=== PATIENT | female | born 1960 | race Caucasian/White ===

== ENCOUNTER 2017-04-25 18:24 | Inpatient (IN) | payer BC ==
[~2017-04-25] VITALS: Ht 162.6 cm; Wt 86.2 kg
--- NOTE | ~2017-04-25 | DS ---
Discharge Summary [place] [id number] [place]. [address] NAME: ANA DUPONT : 56 STATUS : DIS IN PAT#: [id number] AGE: 57 ADM/REG DATE : 04/25/17 MR#: [id number] REPORT SERV DATE: 04/29/17 DICTATED BY: GRISEL JADE DATE: 04/28/17 REPORT STATUS : Draft TRANSCRIBED BY: MODL DATE: 04/28/17 ADMISSION DATE: 04/25/2017 DISCHARGE DATE: 04/28/2017 PRINCIPAL DIAGNOSIS: Ischemic colitis expected to hormone replacement therapy and lisinopril. SECONDARY DIAGNOSES: Type 2 diabetes and hypertension. HISTORY OF PRESENT ILLNESS: Please see Dr. Santos' dictation 04/25/2017. HOSPITAL COURSE: The patient was admitted with abdominal pain about a week following a colonoscopy which had been normal. The patient also had diarrhea. CT showed area of bowel wall thickening of the splenic flexure. The patient did not have fever with this, leukocytosis, did not have significant exam findings, was most consistent instead with ischemic colitis as the patient had been on hormone replacement therapy and lisinopril. These were discontinued. Cozaar was put in its place. The patient actually did quite well. The diet was advanced, seen by GI, no further endoscopic evaluation is deemed necessary and she had met the maximum benefit of hospitalization by 04/28/2017. She released in satisfactory condition with GI soft diet. Activity as tolerated. Following up with Isabella Rebolledo in one to two weeks and Dr. Aparicio as previously scheduled on Levaquin and Flagyl for three more days, Protonix, Florastor, Cozaar, Levemir, Prozac, Synthroid. RSM/ABAD Grisel Jade M.D. / [id number] CC: Frandy Sam M.D.
--- NOTE | ~2017-04-25 | HP ---
History And Physical [place] [id number] [facility] [place]. [address] NAME: ANA DUPONT : 56 STATUS : ADM IN [facility]#: [id number] AGE: 57 ADM/REG DATE : 04/25/17 MR#: [id number] REPORT SERV DATE: 04/26/17 DICTATED BY: KADI SLAUGHTER DATE: 04/25/17 REPORT STATUS : Draft TRANSCRIBED BY: MODAbhi DATE: 04/25/17 DATE OF ADMISSION: 04/25/2017 CHIEF COMPLAINT: Nausea, vomiting, and diarrhea. HISTORY OF PRESENT ILLNESS: A 57-year-old white female was actually in the emergency room to have her mother evaluated when she developed profuse nausea, vomiting, and diarrhea. The patient states today the patient was in the bathroom mom when she became diaphoretic after having nausea, vomiting, diarrhea thus was brought to be evaluated. Her mom was sent home; however, we were requested to admit the patient. The patient has had some nausea, vomiting, diarrhea, abdominal issues for about two months. She had a recent colon and EGD on 04/18/[address] Kelley, who is in Dr. Calvin's group. Recently she was started on Amitiza and has had no problems really since this was started. CT scan in emergency room revealed evidence of colitis. PAST MEDICAL HISTORY: 1. Type 2 diabetes mellitus. 2. Hypertension. 3. Depression. 4. Hypothyroidism. 5. She has obstructive sleep apnea and uses CPAP. PAST SURGICAL HISTORY: 1. The patient had lung surgery for pleural effusions. 2. Right knee surgery. 3. Right rotator cuff surgery. 4. Cholecystectomy. 5. Hysterectomy. SOCIAL HISTORY: She does not smoke. Does not drink. 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 She has a significant other. She is a full code. FAMILY HISTORY: Mom has hypertension, diabetes, has CHF and has CAD, and had stents. Dad has diabetes, depression, and prostate issues. ALLERGIES: THE PATIENT HAS SIDE EFFECTS TO CODEINE "MAKES HER FEEL FUNNY". HOME MEDICATIONS: 1. Albuterol MDI. 2. Cholecalciferol 2000 units daily. 3. Estradiol one patch topically Monday and Monday. 4. Prozac 40 mg daily. 5. Levsin 0.25 mg every 4 hours as needed. 6. Levemir 20 units b.i.d. 7. Synthroid 50 mcg every morning. History And Physical [address] [place]. [address] NAME: ANA DUPONT : 56 STATUS : ADM IN [facility]#: [id number] AGE: 57 ADM/REG DATE : 04/25/17 MR#: [id number] REPORT SERV DATE: 04/26/17 DICTATED BY: KADI SLAUGHTER DATE: 04/25/17 REPORT STATUS : Draft TRANSCRIBED BY: ABAD DATE: 04/25/17 8. Victoza 1.2 mg subcu every morning. 9. Lisinopril 10 mg q.h.s. 10.Amitiza 8 mcg b.i.d. 11.Dulera two puffs at bedtime as needed. 12.Multivitamins daily. 13.Naltrexone/bupropion 8/90 mg two tabs b.i.d. 14.Aleve 220 mg daily. 15.Prilosec 20 mg daily. 16.Crestor 20 mg q.h.s. 17.Halcion 0.25 mg at bedtime. REVIEW OF SYSTEMS: CONSTITUTIONAL: No fever. She has had some sweats. No rigors. EYES: No blurred, double vision, vision loss, or glaucoma. HENT: No headache, hearing loss, or tinnitus. CARDIOVASCULAR: No chest pain, palpitations, or syncope. RESPIRATORY: No cough, wheezing, or pleuritic pain. GASTROINTESTINAL: She has had nausea and vomiting. No hematemesis. She has had some abdominal pain. She has had diarrhea. She does have history of constipation. No melena or hematochezia. MUSCULOSKELETAL: She does have arthralgia and arthritis. INTEGUMENT: No rash or suspicious skin lesions. NEUROLOGIC: No memory loss, gait disturbance, weakness. HEMATOLOGIC: No anemia, iron deficiency, or B12 deficiency. PSYCHIATRIC: She has had a history of depression. No bipolar disorder or anxiety. : No dysuria, hematuria, or nephrolithiasis. ENDOCRINE: She is diabetic. Does have history of thyroid disease and increased cholesterol. PHYSICAL EXAMINATION: VITAL SIGNS: Blood pressure is 100/53, temp 97.7, pulse 81, respirations 18, and O2 saturation 97% on room air. CONSTITUTIONAL: Alert and appropriate. PSYCHIATRIC: Oriented x3. Memory intact. Affect appropriate. HENT: Atraumatic and normocephalic. Oral palate without lesion. EYES: Pupils reactive, anicteric. NECK: No adenopathy. Supple. No thyromegaly or masses. RESPIRATORY: Clear to percussion and auscultation. CARDIOVASCULAR: Regular rate and rhythm. No murmurs. ABDOMEN: Moderate diffuse tenderness worse in the mid-epigastric region. SKIN: No rash or suspicious lesions. NEUROLOGIC: The patient moves all four extremities. Cranial nerves 2 through 12 intact. LYMPHATIC: No adenopathy in the neck, axillary or femoral region. MUSCULOSKELETAL: Range of motion intact in upper and lower extremity. DATA: CT scan shows nonspecific colitis, no evidence of bowel obstruction. Lactate 3.5. History And Physical [address] [address] NAME: ANA DUPONT : 56 STATUS : ADM IN [facility]#: [id number] AGE: 57 ADM/REG DATE : 04/25/17 MR#: [id number] REPORT SERV DATE: 04/26/17 DICTATED BY: KADI SLAUGHTER DATE: 04/25/17 REPORT STATUS : Draft TRANSCRIBED BY: ABAD DATE: 04/25/17 EKG: Normal sinus rhythm, normal EKG. White count 15.3, hemoglobin 16.9, and platelet 313. Sodium 138, potassium 3.4, BUN 13, creatinine 0.98, and glucose 170. IMPRESSION/PLAN: 1. Refractory nausea, vomiting, and diarrhea. This likely is the reason for elevation of lactate, we will give IV fluids. 2. Colitis. We will place the patient on IV Levaquin and IV Flagyl. Consult GI as the patient has had recent EGD colonoscopy. 3. Type 2 diabetes mellitus. We will lower insulin as the patient will be on clear liquid diet. 4. Obstructive sleep apnea. The patient to bring home CPAP. 5. Hypertension. Currently blood pressure on low side. We will hold antihypertensive. NGM/MODL Kadi Slaughter MD / [id number] CC: Frandy Sam M.D.
--- NOTE | ~2017-04-25 | CN ---
Consultation Report [facility] [address] [place]. [address] NAME: ANA DUPONT : 56 STATUS : ADM IN PAT#: [id number] AGE: 57 ADM/REG DATE : 04/25/17 MR#: [id number] REPORT SERV DATE: 04/26/17 DICTATED BY: DAVIDE BRITO DATE: 04/26/17 REPORT STATUS : Draft TRANSCRIBED BY: MODL DATE: 04/26/17 GI CONSULTATION DATE OF CONSULTATION: 04/26/2017 REASON FOR CONSULTATION: Evaluation and management of colitis and abdominal pain. HISTORY OF PRESENT ILLNESS: Ms. Dupont is a very pleasant 57-year-old female patient, who is known to Dr. Kelley in the outpatient setting, who presented to [facility] with a chief complaint of abdominal pain. The patient states that she was actually in the emergency room last evening with her mother secondary to diarrhea and dehydration. She states that her mother was getting ready to be discharged when she developed extreme epigastric abdominal pain and nausea. She had to excuse herself and go to the bathroom. She had emesis. She states that she broke out into a sweat that drenched her body. She felt clammy. She states that she felt dizzy. She came out and let the RN who was taking care of her mother know her symptoms. They treated her immediately. She states she was hypotensive with a systolic around 90. She states that after several minutes, she had profuse uncontrollable diarrhea. She states that it went everywhere. Initially, she did not have any blood in her diarrhea, but states that after the second episode of large volume diarrhea, she developed bright red blood per rectum. She states that since that point in time, she has done nothing but passed bright red blood per rectum. She states that she has had nine episodes of passing bright red blood per rectum. She complains of abdominal soreness. The acute abdominal pain that she was experiencing has abated. She in general feels "ichy." She still has abdominal bloat sensation, nausea, but no emesis. Does not want to eat at this point in time. Mesenteric ultrasound has been ordered by the hospitalist service. CT scan on admission with contrast showed mild diffuse thickening of the transverse and descending colon with liquid fecal material, questioning an underlying mild colitis-type pattern. She states to me that the diarrhea her mother was experiencing is normal for her, but it had increased recently and the patient's mother was showing signs of dehydration. No other family members have been sick with any viral type GI illness per her report. It should be noted that the patient has recently undergone an EGD and a colonoscopy with Dr. Kelley on 04/18/2017. EGD was done secondary to epigastric pain. She had findings of a nonobstructing Schatzki ring, hiatal hernia, normal stomach, and biopsies were taken showing no H pylori and mild chronic gastritis. She had a colonoscopy which showed a poor prep, internal non-thrombosed hemorrhoids, hyperplastic polyp that was removed in the transverse colon, and random biopsies throughout the colon were within normal limits. I have discussed with the patient we will treat her medically at this point in time. Her hemoglobin is stable. Even though she is still passing some bright red blood per rectum, we will not pursue endoscopy at this point in time. Question if this could be all secondary to ischemic colitis. PAST MEDICAL HISTORY: Positive for type 2 diabetes, obesity, hypertension, depression, hypothyroidism, and obstructive sleep apnea with CPAP usage. Consultation Report [place] [id number] [facility] [place]. [address] NAME: ANA DUPONT : 56 STATUS : ADM IN [facility]#: [id number] AGE: 57 ADM/REG DATE : 04/25/17 MR#: [id number] REPORT SERV DATE: 04/26/17 DICTATED BY: DAVIDE BRITO DATE: 04/26/17 REPORT STATUS : Draft TRANSCRIBED BY: ABAD DATE: 04/26/17 SURGERIES: Include pleural effusion with resultant lung surgery, right knee surgery, right rotator cuff repair, cholecystectomy, and hysterectomy. SOCIAL HISTORY: She lives independently. She does not smoke, drink, or use illicit drugs. 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 FAMILY HISTORY: Noncontributory from a GI standpoint. ALLERGIES: CODEINE. HOME MEDICATIONS: ProAir HFA, vitamin D, estradiol, Prozac, Levsin, Levemir, Synthroid, Victoza, Proventil, Amitiza, Dulera, multivitamin, Contrave, Aleve, Prilosec, Crestor, and Halcion. REVIEW OF SYSTEMS: A 10-point review of systems was obtained with pertinent positives being addressed in the history of present illness. PHYSICAL EXAMINATION: VITAL SIGNS: Temperature is 97.4, pulse of 67, respirations of 18, and blood pressure 142/63. NEUROLOGIC: Reveals an alert female, sitting up in bed with no focal deficits. GENERAL: Cooperative, in no apparent distress. She is awake, alert, and oriented x3. She appears uncomfortable secondary to epigastric pain and mild nausea. HEAD, EARS, EYES, NOSE, AND THROAT: Anicteric. Pupils are equal, round, and reactive to light and accommodation. Normocephalic and atraumatic. NECK: Supple with no JVD or palpable nodes. LUNGS: Clear anteriorly with normal respiratory effort exhibited. Equal expansion. CARDIOVASCULAR SYSTEM: Regular rate and rhythm. S1 and S2. No murmurs, rubs, gallops, S3, or S4 appreciated. ABDOMEN: Soft and obese. Tender to palpation, mild diffusely, more so in the left upper quadrant region. No rebound or guarding elicited on exam. Hypoactive bowel sounds. EXTREMITIES: No edema. Normal distal pulses. SKIN: Warm, dry, and intact. PERTINENT LABORATORY DATA: Sodium is 136, potassium 3.8, BUN is 15, and creatinine 0.96. White count 15.1, hemoglobin 14.2, hematocrit 41.8, and platelet count 245. Lactate 1.3. ALT 60, AST 47, alkaline phosphatase 80, total bilirubin 0.7. Stool studies thus far Clostridium difficile negative, Giardia and Cryptosporidium negative, white blood cells 0 to 5 per high-powered field. Cultures and sensitivities are pending. ASSESSMENT: 1. Nausea, vomiting, and diarrhea, acute onset. 2. Colitis by CT scan. This is likely ischemic in nature given her description of symptoms. Consultation Report [address] [place]. [address] NAME: ANA DUPONT : 56 STATUS : ADM IN [facility]#: [id number] AGE: 57 ADM/REG DATE : 04/25/17 MR#: [id number] REPORT SERV DATE: 04/26/17 DICTATED BY: DAVIDE BRITO DATE: 04/26/17 REPORT STATUS : Draft TRANSCRIBED BY: MODL DATE: 04/26/17 3. Leukocytosis secondary to #2. 4. Abdominal pain secondary to #2. 5. Gas bloat. Question if she could have a component of gastroparesis. Would recommend an outpatient gastric emptying study. 6. Type 2 diabetes. 7. Hematochezia. PLAN: 1. Continue antibiotics. 2. Continue IV fluids. 3. Follow up mesenteric ultrasound and stool cultures. 4. Hold Lovenox secondary to hematochezia. 5. We will add TEDs and SCDs. 6. Scheduled Levsin, anti-nausea medication, and pain medication. We will follow. LEONEL/ABAD Davide TITA Rodriguez / [id number] CC: Jovanni Ruiz M.D. Isabella Rebolledo M.D.
[~2017-04-25 18:24] MED LIST: ADVIL PO; ALEVE220 MG PO; AMB10 PO; AUG875 PO; CENTRUM TAB1 TAB PO; CRESTOR20 MG PO; DULERA 100 MCG/13 GM INH; HALCION0.25 MG PO; LEVEMIR SC; MUCINEX DM1 TAB PO; PERCOCET1 TA4 PO; PRILO PO; PRIN10 PO; PROAIR HFA INH; PROZAC40 MG PO; REFRESH TEAR0.5 % OP; SYN125 PO; VITAMIN D31000 UNIT PO
[2017-04-25 19:15] LABS: ALKALINE PHOSPHATASE 102 U/L (45-117); CHLORIDE, SERUM 104 MMOL/L (96-112); CREATININE 0.98 MG/DL (0.55-1.02); GFR AFRICAN AMERICAN 73 ML/MIN (>=60); GFR NON AFRICAN AMERICAN 63 ML/MIN (>=60); GLUCOSE, SERUM 170 MG/DL (60-99); LACTATE 3.5 MMOL/L (0.3-2.4); POTASSIUM, SERUM 3.4 MMOL/L (3.5-5.3); SGOT(AST) 60 U/L (5-40); SGPT(ALT) 71 U/L (5-65); SODIUM, SERUM 138 MMOL/L (135-148); TOTAL BILIRUBIN 0.7 MG/DL (0-1.2)
[2017-04-25 19:16] LABS: BASOPHILS 0.2 %; BASOPHILS ABSOLUTE 0.03 10/3/uL (0.0-0.16); EOSINOPHILS 2.7 %; EOSINOPHILS ABSOLUTE 0.41 10/3/uL (0.0-0.53); IMMATURE GRANULOCYTES 0.4 %; IMMATURE GRANULOCYTES ABSOLUTE 0.06 10/3/uL (0.0-0.11); LYMPHOCYTES 37.5 %; LYMPHOCYTES ABSOLUTE 5.75 10/3/uL (0.67-4.30); MEAN CORPUSCULAR HEMOGLOB 31.1 pg (26.0-34.0); MEAN CORPUSCULAR VOLUME 89.9 fL (80-100); MEAN PLATELET VOLUME 11.5 fL (9.2-13.0); MONOCYTES 4.2 %; MONOCYTES ABSOLUTE 0.64 10/3/uL (0.21-1.20); NEUTROPHILS ABSOLUTE 8.43 10/3/uL (2.02-8.40); PLATELET COUNT 313 10/3/uL (150-400); WHITE BLOOD CELLS 15.3 10/3/uL (4.5-10.5)
[2017-04-25 19:17] LABS: ALBUMIN 4.6 G/DL (3.5-5.0); BUN (BLOOD UREA NITROGEN) 13 MG/DL (6-23); CALCIUM, SERUM 10.3 MG/DL (8.5-10.4); CO2 (CARBON DIOXIDE) 21 MMOL/L (24-34); GLOBULIN 4.5 G/DL (2.5-4.1); TOTAL PROTEIN 9.1 G/DL (6.0-8.5)
[2017-04-25 19:18] LABS: HEMATOCRIT 48.9 % (36.0-48.0); HEMOGLOBIN 16.9 g/dL (12.0-16.0); MANUAL DIFF NO %; MEAN CORPUS HGB CONC 34.6 g/dL (32.0-36.0); RED CELL COUNT 5.44 10/6/uL (4.0-5.6)
[2017-04-25 19:49] LABS: EOSINOPHILS 2 %; EOSINOPHILS ABSOLUTE (CALC) 0.31 10/3/uL (0.0-0.53); ER DIFF TAT 0 Hrs 39 Mins; LYMPHOCYTES 38 %; LYMPHOCYTES ABSOLUTE (CALC) 5.81 10/3/uL (0.67-4.30); MONOCYTES 4 %; MONOCYTES ABSOLUTE (CALC) 0.61 10/3/uL (0.21-1.20); NEUTROPHILS ABSOLUTE (CALC) 8.57 10/3/uL (2.02-8.40); PLATELET ESTIMATE ADQ (ADEQUATE); RBC MORPHOLOGY NORM (NORMAL); SEGMENTED NEUTROPHIL (0) 56 %; TOTAL NUCLEATED CELLS 100
[2017-04-25] MEDS ORDERED: CONTRAVE ER 8-1 EACH PO (21:42)
[2017-04-25] MEDS ORDERED: SYN.05 PO (21:43)
[2017-04-25] MEDS ORDERED: HAL PO (21:43)
[2017-04-25] MEDS ORDERED: PRIN10 PO (21:44)
[2017-04-25] MEDS ORDERED: AMITIZA8 MCG PO (21:44)
[2017-04-25] MEDS ORDERED: PRILO PO (21:45)
[2017-04-25] MEDS ORDERED: PROAIR HFA INH (21:45)
[2017-04-25] MEDS ORDERED: CRESTOR20 MG PO (21:45)
[2017-04-25] MEDS ORDERED: LEVEMFLXPN SC (21:45)
[2017-04-25] MEDS ORDERED: DULERA 100 MCG/13 GM INH (21:46)
[2017-04-25] MEDS ORDERED: ALEVE220 MG PO (21:47)
[2017-04-25] MEDS ORDERED: MINIVELLE1 EACH TOP (21:47)
[2017-04-25] MEDS ORDERED: VICTOZA18 MG/3 ML SC (21:48)
[2017-04-25] MEDS ORDERED: PROZAC40 MG PO (21:49)
[2017-04-25] MEDS ORDERED: LEVSINTAB PO/SL (21:49)
[2017-04-25] MEDS ORDERED: VITAMIN D2000 UNIT PO (21:50)
[2017-04-25] MEDS ORDERED: MULTIVIT/MIN PO (21:50)
[2017-04-26 05:17] LABS: BASOPHILS 0.1 %; BASOPHILS ABSOLUTE 0.01 10/3/uL (0.0-0.16); EOSINOPHILS 0.1 %; EOSINOPHILS ABSOLUTE 0.02 10/3/uL (0.0-0.53); HEMOGLOBIN 14.2 g/dL (12.0-16.0); IMMATURE GRANULOCYTES 0.3 %; IMMATURE GRANULOCYTES ABSOLUTE 0.04 10/3/uL (0.0-0.11); LYMPHOCYTES 11.5 %; LYMPHOCYTES ABSOLUTE 1.74 10/3/uL (0.67-4.30); MEAN CORPUSCULAR HEMOGLOB 30.3 pg (26.0-34.0); MEAN CORPUSCULAR VOLUME 89.1 fL (80-100); MEAN PLATELET VOLUME 11.5 fL (9.2-13.0); MONOCYTES 7.6 %; MONOCYTES ABSOLUTE 1.14 10/3/uL (0.21-1.20); NEUTROPHILS 80.4 %; NEUTROPHILS ABSOLUTE 12.13 10/3/uL (2.02-8.40); PLATELET COUNT 245 10/3/uL (150-400); RBC DISTRIBUTION WIDTH 12.9 % (12.0-16.0); RED CELL COUNT 4.69 10/6/uL (4.0-5.6); WHITE BLOOD CELLS 15.1 10/3/uL (4.5-10.5)
[2017-04-26 05:19] LABS: HEMATOCRIT 41.8 % (36.0-48.0); MANUAL DIFF NO %
[2017-04-26 05:28] LABS: BUN (BLOOD UREA NITROGEN) 15 MG/DL (6-23); CHLORIDE, SERUM 101 MMOL/L (96-112); CO2 (CARBON DIOXIDE) 25 MMOL/L (24-34); CREATININE 0.96 MG/DL (0.55-1.02); GFR AFRICAN AMERICAN 75 ML/MIN (>=60); GFR NON AFRICAN AMERICAN 65 ML/MIN (>=60); GLUCOSE, SERUM 180 MG/DL (60-99); PHOSPHORUS, SERUM 4.3 MG/DL (2.5-4.5); POTASSIUM, SERUM 3.8 MMOL/L (3.5-5.3); SGOT(AST) 47 U/L (5-40); SGPT(ALT) 60 U/L (5-65); SODIUM, SERUM 136 MMOL/L (135-148); TOTAL BILIRUBIN 0.5 MG/DL (0-1.2)
[2017-04-26 05:29] LABS: A/G RATIO 0.9 (0.7-1.9); ALBUMIN 3.4 G/DL (3.5-5.0); ALKALINE PHOSPHATASE 80 U/L (45-117); CALCIUM, SERUM 8.8 MG/DL (8.5-10.4); GLOBULIN 3.6 G/DL (2.5-4.1)
[2017-04-27 06:47] LABS: BASOPHILS 0.1 %; BASOPHILS ABSOLUTE 0.01 10/3/uL (0.0-0.16); EOSINOPHILS 2.1 %; EOSINOPHILS ABSOLUTE 0.16 10/3/uL (0.0-0.53); HEMATOCRIT 40.4 % (36.0-48.0); HEMOGLOBIN 13.2 g/dL (12.0-16.0); IMMATURE GRANULOCYTES 0.4 %; IMMATURE GRANULOCYTES ABSOLUTE 0.03 10/3/uL (0.0-0.11); LYMPHOCYTES 25.3 %; LYMPHOCYTES ABSOLUTE 1.97 10/3/uL (0.67-4.30); MEAN CORPUS HGB CONC 32.7 g/dL (32.0-36.0); MEAN PLATELET VOLUME 10.7 fL (9.2-13.0); MONOCYTES 8.2 %; MONOCYTES ABSOLUTE 0.64 10/3/uL (0.21-1.20); NEUTROPHILS 63.9 %; NEUTROPHILS ABSOLUTE 4.98 10/3/uL (2.02-8.40); PLATELET COUNT 198 10/3/uL (150-400); RBC DISTRIBUTION WIDTH 13.2 % (12.0-16.0)
[2017-04-27 06:49] LABS: MANUAL DIFF NO %; MEAN CORPUSCULAR VOLUME 91.8 fL (80-100); WHITE BLOOD CELLS 7.8 10/3/uL (4.5-10.5)
[2017-04-27 07:10] LABS: BUN (BLOOD UREA NITROGEN) 5 MG/DL (6-23); CALCIUM, SERUM 8.9 MG/DL (8.5-10.4); CHLORIDE, SERUM 106 MMOL/L (96-112); CO2 (CARBON DIOXIDE) 27 MMOL/L (24-34); CREATININE 0.63 MG/DL (0.55-1.02); GFR AFRICAN AMERICAN 114 ML/MIN (>=60); GFR NON AFRICAN AMERICAN 98 ML/MIN (>=60); GLUCOSE, SERUM 171 MG/DL (60-99); POTASSIUM, SERUM 3.8 MMOL/L (3.5-5.3); SODIUM, SERUM 139 MMOL/L (135-148)
[2017-04-28 06:50] LABS: BUN (BLOOD UREA NITROGEN) 5 MG/DL (6-23); CALCIUM, SERUM 9.3 MG/DL (8.5-10.4); CHLORIDE, SERUM 105 MMOL/L (96-112); CO2 (CARBON DIOXIDE) 31 MMOL/L (24-34); CREATININE 0.72 MG/DL (0.55-1.02); GFR AFRICAN AMERICAN 106 ML/MIN (>=60); GFR NON AFRICAN AMERICAN 92 ML/MIN (>=60); GLUCOSE, SERUM 141 MG/DL (60-99); POTASSIUM, SERUM 3.5 MMOL/L (3.5-5.3); SODIUM, SERUM 143 MMOL/L (135-148)
[2017-04-28 06:56] LABS: BASOPHILS 0.3 %; BASOPHILS ABSOLUTE 0.02 10/3/uL (0.0-0.16); EOSINOPHILS ABSOLUTE 0.28 10/3/uL (0.0-0.53); HEMOGLOBIN 13.9 g/dL (12.0-16.0); IMMATURE GRANULOCYTES 0.3 %; IMMATURE GRANULOCYTES ABSOLUTE 0.02 10/3/uL (0.0-0.11); LYMPHOCYTES 37.4 %; MEAN CORPUS HGB CONC 33.1 g/dL (32.0-36.0); MEAN CORPUSCULAR HEMOGLOB 30.3 pg (26.0-34.0); MEAN CORPUSCULAR VOLUME 91.5 fL (80-100); MEAN PLATELET VOLUME 11.2 fL (9.2-13.0); MONOCYTES 6.3 %; MONOCYTES ABSOLUTE 0.44 10/3/uL (0.21-1.20); NEUTROPHILS 51.7 %; NEUTROPHILS ABSOLUTE 3.59 10/3/uL (2.02-8.40); PLATELET COUNT 225 10/3/uL (150-400); RBC DISTRIBUTION WIDTH 13.1 % (12.0-16.0); RED CELL COUNT 4.59 10/6/uL (4.0-5.6)
[2017-04-28 06:58] LABS: MANUAL DIFF NO %
[2017-04-28] MEDS ORDERED: LEVAQUIN750 MG PO (10:09)
[2017-04-28] MEDS ORDERED: FLORASTOR250 MG PO (10:09)
[2017-04-28] MEDS ORDERED: FLAG500TAB PO (10:10)
[2017-04-28] MEDS ORDERED: COZ50 PO (10:11)
== END 2017-04-28 14:25 | disposition home or self-care (01) | DRG 395 ==
LOC: ER 18:24 → 7NO 22:44
PROVIDERS: Hospitalist; Internal Medicine; Nurse Practitioner Family; Student in an Organized Health Care Education/Training Program
DX: K55.9 Vascular disorder of intestine, unspecified (principal); Z99.81 Dependence on supplemental oxygen; E11.9 Type 2 diabetes mellitus without complications; G47.33 Obstructive sleep apnea (adult) (pediatric); E03.9 Hypothyroidism, unspecified; Z79.4 Long term (current) use of insulin; I10 Essential (primary) hypertension; T38.805A Adverse effect of unspecified hormones and synthetic substitutes, initial encounter; T46.4X5A Adverse effect of angiotensin-converting-enzyme inhibitors, initial encounter
CPT/HCPCS: 74022; 74177; 80048; 80053; 81001; 82962; 83036; 83605; 83690; 83735; 84100; 85025; 87045; 87046; 87046-59; 87328; 87329; 87493; 87493-59; 87899; 87899-59; 89055; 93005; 93975; 96374; 96375; 99285; A9270-GY; C9113; J1170; J1956; J2405; Q9967